=== PATIENT | female | born 1935 | race Caucasian/White ===

== ENCOUNTER 2023-10-06 14:30 | Emergency (ER) | payer MEDICARE, OTHER, SELFPAY ==
[2023-10-06 14:33] VITALS: BP 177/107; PULSE 89; TEMP 36.5; O2SAT 98; BMI 23.2
--- NOTE | 2023-10-06 14:37 | CT_ITS ---
The [address] [address] Patient Name: SAMUEL HOLCOMB MRN: [id number] date: 1935 Sex: F Assigned Patient Location: ER Current Patient Location: Accession/Order Number: [id number] Exam Date: 10/06/2023 15:32 Report Date: 10/06/2023 16:04 At the request of: NGOC DAIGLE Procedure: CT head/brain wo con EXAMINATION: CT head/brain wo con, CT facial bones wo con HISTORY: fell, hit right side of face COMPARISON: CT head 07/23/2018 TECHNIQUE: Axial CT images were obtained without IV contrast. Dose reduction techniques were achieved by using automated exposure control and/or adjustment of mA and/or kV according to patient size and/or use of iterative reconstruction technique. FINDINGS: BRAIN: No edema, hemorrhage, mass, acute infarction, or inappropriate atrophy. CSF SPACES: No hydrocephalus, subarachnoid hemorrhage, or mass. Appropriate for age. SKULL: No fracture, mass, or other significant visible lesion. SINUSES: No fracture or significant mucosal thickening or fluid. ORBITS: No fracture of the orbital rims with specific attention to the right orbit. No involvement of the globe or intraorbital contents. Prominent periorbital soft tissue edema versus bruising. No radiopaque foreign body. FACIAL BONES: No fracture of the facial bones. CT/CT head/brain wo con IMPRESSION: 1. No intracranial hemorrhage or acute abnormality brain. Age consistent chronic changes. 2. No fracture of the calvarium or scalp hematoma. 3. Right periorbital soft tissue edema/bruising. No radiopaque foreign body. 4. No fracture of the right orbit, involvement of the globe, or involvement of the intraorbital contents. Electronically authenticated by: VENTURA GIORDANO Date: 10/06/2023 16:04
[2023-10-06] MEDS: LIDOCAINE HCL 1% 100 MG/10 ML MDV INJ (14:47)
--- NOTE | 2023-10-06 14:57 | CT_ITS ---
The [address] [address] Patient Name: SAMUEL HOLCOMB MRN: [id number] date: 1935 Sex: F Assigned Patient Location: ER Current Patient Location: Accession/Order Number: [id number] Exam Date: 10/06/2023 15:32 Report Date: 10/06/2023 16:04 At the request of: NGOC DAIGLE Procedure: CT facial bones wo con EXAMINATION: CT head/brain wo con, CT facial bones wo con HISTORY: fell, hit right side of face COMPARISON: CT head 07/23/2018 TECHNIQUE: Axial CT images were obtained without IV contrast. Dose reduction techniques were achieved by using automated exposure control and/or adjustment of mA and/or kV according to patient size and/or use of iterative reconstruction technique. FINDINGS: BRAIN: No edema, hemorrhage, mass, acute infarction, or inappropriate atrophy. CSF SPACES: No hydrocephalus, subarachnoid hemorrhage, or mass. Appropriate for age. SKULL: No fracture, mass, or other significant visible lesion. SINUSES: No fracture or significant mucosal thickening or fluid. ORBITS: No fracture of the orbital rims with specific attention to the right orbit. No involvement of the globe or intraorbital contents. Prominent periorbital soft tissue edema versus bruising. No radiopaque foreign body. FACIAL BONES: No fracture of the facial bones. CT/CT facial bones wo con IMPRESSION: 1. No intracranial hemorrhage or acute abnormality brain. Age consistent chronic changes. 2. No fracture of the calvarium or scalp hematoma. 3. Right periorbital soft tissue edema/bruising. No radiopaque foreign body. 4. No fracture of the right orbit, involvement of the globe, or involvement of the intraorbital contents. Electronically authenticated by: VENTURA GIORDANO Date: 10/06/2023 16:04
--- NOTE | 2023-10-06 15:10 | ED_ITS ---
HPI HPI - Fall General Chief Complaint: Fall Stated Complaint: FALL Time Seen by Provider: 10/06/23 14:32 Mode of arrival: ambulance Limitations: no limitations History of Present Illness HPI Narrative: 88-year-old female with presented to the emergency department because she tripped and fell and landed on the right side of her face causing a laceration above her right eye. She scraped her left knee and has a small abrasion at the base of her right fifth finger. No hip pain chest pain or neck pain. No LOC. She is on Eliquis. Related Data Allergies Allergy/AdvReac Type Severity Reaction Status Date / Time Penicillins Allergy Severe Verified 10/06/23 14:33 Opioid HPI Opioid Management Most Recent Pain and Opioid Data: No Data to Display Review of Systems ROS Narrative A ten point review of systems is negative except as noted above. Exam Narrative Exam Narrative: Nurses note and vital signs reviewed and patient is not hypoxic. General: The patient appears in no apparent respiratory distress. Skin: Warm, dry, no pallor noted. There is no rash noted. Head: Normocephalic, irregular 4 cm laceration present just above the right eyebrow. Small amount of bleeding present easily controlled with pressure. She has abrasion below her right eye and a large hematoma there but no laceration below the eye. Eye: Normal conjunctiva, no drainage Ears, Nose, Mouth, and Throat: oral mucosa is moist. Nares patent. Cardiovascular: Regular Rate and Rhythm Respiratory: Patient is in no distress, no accessory muscle use, lungs are clear to auscultation, no wheezing, rales or rhonchi Back: non-tender, no CVA tenderness bilaterally to percussion. GI: Soft and nontender. Musculoskeletal: Superficial laceration present at the base of her right index finger on the flexor side. That finger is full range of motion. There is a skin tear at her left knee anteriorly and that knee has full range of motion. No tenderness in her hips. Neurological: A&O, normal speech Psychiatric: Cooperative Constitutional Vital Signs, click to edit/add: Last Vital Signs Temp 97.7 F 10/06/23 14:33 Pulse 89 10/06/23 14:33 Resp 18 10/06/23 14:33 BP 177/107 H 10/06/23 14:33 Pulse Ox 98 10/06/23 14:33 O2 Del Method Room Air 10/06/23 14:33 Course Vital Signs Vital signs: Vital Signs Temperature 97.7 F 10/06/23 14:33 Pulse Rate 89 10/06/23 14:33 Respiratory Rate 18 10/06/23 14:33 Blood Pressure 177/107 H 10/06/23 14:33 Pulse Oximetry 98 10/06/23 14:33 Oxygen Delivery Method Room Air 10/06/23 14:33 Temperature 97.7 F 10/06/23 14:33 Pulse Rate 89 10/06/23 14:33 Respiratory Rate 18 10/06/23 14:33 Blood Pressure 177/107 H 10/06/23 14:33 Pulse Oximetry 98 10/06/23 14:33 Oxygen Delivery Method Room Air 10/06/23 14:33 MDM - Fall MDM Narrative Medical decision making narrative: CT scan of facial bones and brain are negative. Tetanus is already up-to-date. Sutures are to be removed in 10 days because of the depth and concern for healing. She has significant hematomas and dressing was applied. Findings are discussed with her family. She has skin tears on her hand and left knee and these do not require sutures. She is ambulatory prior to discharge. Treatment diagnosis and follow-up were discussed thoroughly. Differential Diagnosis Differential diagnosis: Likely other (Subdural hematoma, subarachnoid hemorrhage, epidural hematoma, facial laceration) Imaging Data CT scan - head: Radiologist's impression: ITS Impressions Head CT 10/06/23 14:37 IMPRESSION: 1. No intracranial hemorrhage or acute abnormality brain. Age consistent chronic changes. 2. No fracture of the calvarium or scalp hematoma. 3. Right periorbital soft tissue edema/bruising. No radiopaque foreign body. 4. No fracture of the right orbit, involvement of the globe, or involvement of the intraorbital contents. Electronically authenticated by: VENTURA GIORDANO Date: 10/06/2023 16:[address] 10/06/23 14:57 IMPRESSION: 1. No intracranial hemorrhage or acute abnormality brain. Age consistent chronic changes. 2. No fracture of the calvarium or scalp hematoma. 3. Right periorbital soft tissue edema/bruising. No radiopaque foreign body. 4. No fracture of the right orbit, involvement of the globe, or involvement of the intraorbital contents. Electronically authenticated by: VENTURA GIORDANO Date: 10/06/2023 16:04 Discharge Plan Discharge Stand Alone Forms: Portal Instructions Chief Complaint: Fall Clinical Impression: Facial laceration, Facial hematoma Patient Disposition: Home, Self-Care Time of Disposition Decision: 16:38 Condition: Good Mode of Transportation: Private Vehicle Print Language: Togolese Instructions: Laceration (ED), Hematoma (ED), Facial Contusion (ED) Additional Instructions: Sutures to be removed in 10 days. Referrals: ISAC PAULINO [Primary Care Provider] - 1 week Procedures ED Procedure Instructions Procedures Procedures: The following procedure was performed by me. Right forehead laceration was repaired. Local infiltration was carried out with 1% lidocaine without epinephrine resulting in complete skin anesthesia. The area was prepped with Betadine x 3 and draped sterilely. It was explored for foreign bodies number found and closed with seven 5-0 Ethilon sutures resulting in good skin reapproximation and no complications. She had a hematoma present already before the repair was performed.
--- NOTE | 2023-10-06 15:15 | PC.NURSE ---
area cleansed to sutured lac to right side above eye and dressing in place. skin tear to left knee cleansed with sterile saline and wet dressing placed on top.
== END 2023-10-06 17:05 | disposition home or self-care (01) ==
PROVIDERS: Emergency Provider Emergency Medicine; PCP Internal Medicine
DX: S01.81XA Laceration without foreign body of other part of head, initial encounter (principal); S00.83XA Contusion of other part of head, initial encounter; W01.10XA Fall on same level from slipping, tripping and stumbling with subsequent striking against unspecified object, initial encounter; Z79.01 Long term (current) use of anticoagulants
CPT/HCPCS: 12013; 70450; 70486; 99284